=== PATIENT | female | born 1940 | race Caucasian/White ===

== ENCOUNTER 2024-07-10 15:04 | Inpatient (IN) | payer OTHER ==
[2024-07-10 15:44] VITALS: BMI 39.1
[2024-07-10] MEDS: SODIUM CHLORIDE 500 ML IV STA (16:00)
[2024-07-10 16:18] LABS: HEMATOCRIT 36.3 % (32.4-45.2); HEMOGLOBIN 11.4 G/dL (10.7-15.3); MCH 26.9 pg (25.7-33.7); MCHC 31.4 g/dl (32.0-36.0); MEAN CELL VOLUME 85.6 fl (80-96); MEAN PLT VOLUME 9.7 fl (7.5-11.1); PLATELET COUNT 215.5 10^3/uL (134-434); RBC 4.24 10^6/uL (3.60-5.2); RDW 17.7 % (11.6-15.6); WHITE BLOOD COUNT 10.3 10^3/uL (4.0-10.8)
[2024-07-10 16:38] LABS: ALBUMIN 3.6 g/dl (3.4-5.0); BILIRUBIN,TOTAL 0.8 mg/dl (0.2-1); CALCIUM 9.4 mg/dl (8.5-10.1); CREATININE 1.5 mg/dl (0.6-1.3); POTASSIUM 3.8 mmol/L (3.5-5.1); TOT PROT 5.5 g/dl (6.4-8.2)
[2024-07-10 16:40] LABS: PLATELET ESTIMATE ADEQUATE
[2024-07-11] MEDS: oxyCODONE HCL 5 MG TABLET PO PRN (06:46)
[2024-07-11 07:25] LABS: HEMATOCRIT 31.5 % (32.4-45.2); HEMOGLOBIN 9.6 G/dL (10.7-15.3); MCH 26.4 pg (25.7-33.7); MCHC 30.5 g/dl (32.0-36.0); MEAN CELL VOLUME 86.6 fl (80-96); MEAN PLT VOLUME 9.9 fl (7.5-11.1); PLATELET COUNT 209.2 10^3/uL (134-434); RBC 3.64 10^6/uL (3.60-5.2); RDW 17.1 % (11.6-15.6); WHITE BLOOD COUNT 13.3 10^3/uL (4.0-10.8)
[2024-07-11 08:05] LABS: ALBUMIN 3.3 g/dl (3.4-5.0); CREATININE 1.9 mg/dl (0.6-1.3); TOT PROT 5.1 g/dl (6.4-8.2)
[2024-07-11] MEDS ORDERED: SACUBITRIL/VALSARTAN 49 MG-51 MG TABLET PO SCH (12:15)
[2024-07-11] MEDS: SACUBITRIL/VALSARTAN 49 MG-51 MG TABLET PO SCH (13:08)
[2024-07-11] MEDS: ESCITALOPRAM OXALATE 10 MG TABLET PO SCH (13:13)
[2024-07-11] MEDS: DOCUSATE SODIUM 100 MG CAPSULE (FP) PO SCH (13:13)
[2024-07-11] MEDS: FLUTICASONE/UMECLIDIN/VILANTER(100-62.5-25 TRELEGY ELLIPTA) INAHLER IH SCH (13:14)
[2024-07-11] MEDS: ACETAMINOPHEN 325 MG TABLET (FP) PO PRN (13:53)
[2024-07-11] MEDS: ONDANSETRON 4 MG/2 ML VIAL IVPUSH ONE (16:10)
[2024-07-11 17:18] LABS: HEMATOCRIT 31.7 % (32.4-45.2); HEMOGLOBIN 9.8 G/dL (10.7-15.3); MCH 26.7 pg (25.7-33.7); MEAN CELL VOLUME 85.9 fl (80-96); MEAN PLT VOLUME 9.5 fl (7.5-11.1); PLATELET COUNT 205.4 10^3/uL (134-434); RBC 3.69 10^6/uL (3.60-5.2); RDW 17.5 % (11.6-15.6)
[2024-07-11 17:44] LABS: CREATININE 1.9 mg/dl (0.6-1.3)
[2024-07-11 17:45] LABS: ALBUMIN 3.6 g/dl (3.4-5.0); BILIRUBIN,TOTAL 1.3 mg/dl (0.2-1); POTASSIUM 4.3 mmol/L (3.5-5.1); TOT PROT 5.5 g/dl (6.4-8.2)
[2024-07-11] MEDS: FLUTICASONE/UMECLIDIN/VILANTER(200-62.5-25 TRELEGY ELLIPTA) INAHLER IH SCH (18:02)
[2024-07-11] MEDS: MONTELUKAST NA 10 MG TABLET PO SCH (21:10)
[2024-07-12] MEDS: AMIODARONE HCL 200 MG TABLET PO SCH (09:07)
[2024-07-12] MEDS: EMPAGLIFLOZIN (JARDIANCE) 10 MG TABLET PO SCH (09:09)
[2024-07-12 10:55] LABS: HEMATOCRIT 29.7 % (32.4-45.2); HEMOGLOBIN 9.1 G/dL (10.7-15.3); MCH 26.2 pg (25.7-33.7); MCHC 30.7 g/dl (32.0-36.0); MEAN CELL VOLUME 85.1 fl (80-96); MEAN PLT VOLUME 9.7 fl (7.5-11.1); PLATELET COUNT 187.4 10^3/uL (134-434); RBC 3.49 10^6/uL (3.60-5.2); RDW 17.2 % (11.6-15.6); WHITE BLOOD COUNT 11.6 10^3/uL (4.0-10.8)
[2024-07-12 11:20] LABS: ALBUMIN 3.4 g/dl (3.4-5.0); BILIRUBIN,TOTAL 1.2 mg/dl (0.2-1); CALCIUM 8.9 mg/dl (8.5-10.1); POTASSIUM 4.3 mmol/L (3.5-5.1); TOT PROT 5.2 g/dl (6.4-8.2)
[2024-07-12 11:28] LABS: PLATELET ESTIMATE ADEQUATE
[2024-07-12 11:29] LABS: ANISOCYTOSIS 1+
[2024-07-13 14:25] LABS: HEMATOCRIT 26.4 % (32.4-45.2); HEMOGLOBIN 8.2 G/dL (10.7-15.3); MCH 26.9 pg (25.7-33.7); MCHC 31.1 g/dl (32.0-36.0); MEAN CELL VOLUME 86.4 fl (80-96); MEAN PLT VOLUME 9.5 fl (7.5-11.1); RBC 3.06 10^6/uL (3.60-5.2); RDW 17.4 % (11.6-15.6); WHITE BLOOD COUNT 9.2 10^3/uL (4.0-10.8)
[2024-07-13 14:46] LABS: ALBUMIN 3.3 g/dl (3.4-5.0); BILIRUBIN,TOTAL 0.8 mg/dl (0.2-1); CALCIUM 8.6 mg/dl (8.5-10.1); CREATININE 1.7 mg/dl (0.6-1.3); POTASSIUM 4.1 mmol/L (3.5-5.1); TOT PROT 4.9 g/dl (6.4-8.2)
[2024-07-14] MEDS: SACUBITRIL/VALSARTAN 24 MG-26 MG TABLET PO SCH (11:23)
[2024-07-15 12:03] LABS: ALBUMIN 2.9 g/dl (3.4-5.0); BILIRUBIN,TOTAL 0.5 mg/dl (0.2-1); CALCIUM 8.4 mg/dl (8.5-10.1); CREATININE 0.7 mg/dl (0.6-1.3); POTASSIUM 4.3 mmol/L (3.5-5.1); TOT PROT 5.2 g/dl (6.4-8.2)
[2024-07-16 02:03] VITALS: RESP 18
[2024-07-16 10:28] VITALS: BP 138/73; PULSE 75; TEMP 97.6
== END 2024-07-16 15:00 | disposition home or self-care (01) ==
LOC: FER 15:04 → FM/S 19:10
PROVIDERS: ADMIT Internal Medicine; ATTEND Nurse Practitioner Family
DX: N17.9 Acute kidney failure, unspecified (principal); T14.8XXA Other injury of unspecified body region, initial encounter; R55 Syncope and collapse
CPT/HCPCS: 0241U-QW; 36415; 70450-TC; 71045-TC-FY; 72192-TC; 74176-TC; 76775-TC; 80053; 80061; 81003; 81015; 82550; 82962; 83036; 83880; 84443; 84484; 85025; 85027; 93005; 93306-TC; 97116-GP; 97162-GP; 99285-25